=== PATIENT | male | born 1960 | race Caucasian/White ===

== ENCOUNTER 2023-08-04 13:31 | Outpatient (REF) | payer MEDICARE, SELFPAY ==
[2023-08-04 18:13] LABS: Anion Gap 13 (12-20); Blood Urea Nitrogen 17 mg/dL (9-16); Calcium 9.7 mg/dL (8.4-10.2); Carbon Dioxide 29 mmol/L (22-29); Chloride 101 mmol/L (96-108); Estimated Glomerular Filt Rate 53; Potassium 4.7 mmol/L (3.3-5.1); Sodium 138 mmol/L (135-145)
[2023-08-04 19:25] LABS: Creatinine Urine 37.53 mg/dL; Protein/Creatinine Ratio, Ur 0.37 (<0.2); Total Protein Urine Random 14 mg/dL (<12)
== END 2023-08-04 13:32 | disposition home or self-care (01) ==
LOC: HO.HKASLDS 13:31
PROVIDERS: Visit Provider Internal Medicine Nephrology
DX: N18.30 Chronic kidney disease, stage 3 unspecified (principal)
CPT/HCPCS: 36415; 80051; 82310; 82565; 82570; 84156; 84520

== ENCOUNTER 2023-08-17 14:30 | Outpatient (AMB) | payer MEDICARE, SELFPAY ==
--- NOTE | 2023-08-17 14:48 | HO.NEPHOV ---
HPI HPI Comments History of Present Illness Details I had the privilege of seeing sigifredo in follow-up of his chronic kidney disease and hypertension. His serum creatinine has been stable around 1.3 with a 370 mg of protein in the urine by random testing. He has had no renal stones since last visit. His weights have been stable. His blood pressure is well controlled. He is not taking any nonsteroidal anti-inflammatories. He denies nausea, vomiting, diarrhea, pedal edema, orthostatic symptoms, hematuria, dizziness. He maintains good hydration. He is due to have a colonoscopy given family history of colonic polyps. [facility] Medical History (Updated 08/17/23 @ 15:16 by Jono Clark MD) Renal stone Hypertension CKD (chronic kidney disease) stage 3, GFR 30-59 ml/min Surgical History History of ankle fusion Family History Father Hypertension Social History (Updated 08/17/23 @ 14:59 by Alisa Walker MA) Alcohol intake: current Comment: Occasional Patient Tobacco Use Status: Never used Tobacco Vital Signs 08/17/23 14:49 Height 5 ft 8 in Weight 274 lb 4 oz BMI 41.7 BP 124/70 Blood Pressure Location Rt brachial Position Sitting Pulse 72 Pulse Source Pulse Oximeter Pulse Oximetry (%) 93 Oxygen Delivery Method Room Air Physical Exam Vital Signs: Last Vital Signs Pulse 72 08/17/23 14:49 BP 124/70 08/17/23 14:49 Pulse Ox 93 08/17/23 14:49 Oxygen Delivery Method Room Air 08/17/23 14:49 BMI result Body Mass Index 41.7 Const General: comfortable and no acute distress Orientation/consciousness: patient oriented x3 HEENT Head: Yes normocephalic Mouth: Normal oral and palatal mucosa present Eyes EOM: EOMs intact bilaterally Neck Neck: Yes supple Resp Auscultation: clear to auscultation bilaterally Cardio Jugular venous distension: no JVD Rate: regular rate GI Palpation (GI): Soft to palpation Auscultation: normal bowel sounds General: Yes no CVA tenderness Back/Spine/Pelvis Back: no CVA tenderness Skin General skin exam: no rashes or lesions noted Neuro General: patient oriented x3 and moves all extremities Extrem General: Yes no pedal edema Assessment & Plan Assessment & Plan (1) CKD (chronic kidney disease) stage 3, GFR 30-59 ml/min: Code(s): N18.30 - Chronic kidney disease, stage 3 unspecified Qualifiers: Chronic kidney disease stage 3 subtype: stage 3a (GFR 45-59) Qualified Code(s): N18.31 - Chronic kidney disease, stage 3a (2) Renal stone: Code(s): N20.0 - Calculus of kidney (3) Hypertension: Code(s): I10 - Essential (primary) hypertension Qualifiers: Hypertension type: primary hypertension Qualified Code(s): I10 - Essential (primary) hypertension Plan His renal functions are currently stable. His proteinuria is stable. His blood pressure is at goal. He is staying away from nonsteroidal anti-inflammatories. He will benefit from some weight loss and regular exercises. I will consider initiating him on low-dose DEBBIE inhibitor (and or thiazide diuretics especially given history of renal stones). I did not make any medication changes today. Follow-up blood work ordered. Appointment given. Answered all questions. Orders: Orders Creatinine Today I10 - Essential (primary) hypertension, N18.30 - Chronic kidney disease, stage 3 unspecified, N20.0 - Calculus of kidney Blood Urea Nitrogen Today I10 - Essential (primary) hypertension, N18.30 - Chronic kidney disease, stage 3 unspecified, N20.0 - Calculus of kidney Electrolytes Today I10 - Essential (primary) hypertension, N18.30 - Chronic kidney disease, stage 3 unspecified, N20.0 - Calculus of kidney Protein Creatinine Ratio, Ur Today I10 - Essential (primary) hypertension, N18.30 - Chronic kidney disease, stage 3 unspecified, N20.0 - Calculus of kidney Coding Level of Care Code Est Pt Level 3 (97708) Diagnoses Stage 3a chronic kidney disease N18.31 Chronic kidney disease stage 3 subtype: stage 3a (GFR 45-59) Renal stone N20.0 Primary hypertension I10 Hypertension type: primary hypertension Results Reviewed Nephrology Results: Sodium 138 mmol/L (135-145) 08/04/23 Potassium 4.7 mmol/L (3.3-5.1) 08/04/23 Chloride 101 mmol/L (96-108) 08/04/23 Carbon Dioxide 29 mmol/L (22-29) 08/04/23 BUN 17 mg/dL (9-16) H 08/04/23 Creatinine 1.35 mg/dL (0.5-1.4) 08/04/23 Calcium 9.7 mg/dL (8.4-10.2) 08/04/23 Urine Creatinine 37.53 mg/dL 08/04/23 Protein/Creatinin Ratio 0.37 (<0.2) H 08/04/23
[2023-08-17 14:49] VITALS: BP 124/70; PULSE 72; O2SAT 93; BMI 41.7
== END 2023-08-17 15:25 | disposition home or self-care (01) ==
PROVIDERS: PCP Physician Assistant Medical; Visit Provider Internal Medicine Nephrology
DX: N18.31 Chronic kidney disease, stage 3a (principal); N20.0 Calculus of kidney; I10 Essential (primary) hypertension
CPT/HCPCS: 99213

== ENCOUNTER → 2023-08-17 14:30 | Outpatient (BNVA) | payer MEDICARE, SELFPAY | PROVIDERS: PCP Physician Assistant Medical; Visit Provider Internal Medicine Nephrology | DX: I12.9 Hypertensive chronic kidney disease with stage 1 through stage 4 chronic kidney disease, or unspecified chronic kidney disease (principal); N18.31 Chronic kidney disease, stage 3a; N20.0 Calculus of kidney | CPT/HCPCS: 99212 ==

== ENCOUNTER 2024-02-22 10:47 | Outpatient (REF) | payer MEDICARE, SELFPAY ==
[2024-02-22 18:15] LABS: Anion Gap 13 (12-20); Blood Urea Nitrogen 18 mg/dL (9-16); Carbon Dioxide 29 mmol/L (22-29); Chloride 104 mmol/L (96-108); Estimated Glomerular Filt Rate 58; Sodium 141 mmol/L (135-145)
[2024-02-22 18:30] LABS: Creatinine Urine 84.92 mg/dL; Protein/Creatinine Ratio, Ur 0.33 (<0.2); Total Protein Urine Random 28 mg/dL (<12)
== END 2024-02-22 10:48 | disposition home or self-care (01) ==
LOC: HO.HKASLDS 10:47
PROVIDERS: Visit Provider Internal Medicine Nephrology
DX: I10 Essential (primary) hypertension (principal); N20.0 Calculus of kidney; N18.30 Chronic kidney disease, stage 3 unspecified
CPT/HCPCS: 36415; 80051; 82565; 82570; 84156; 84520

== ENCOUNTER 2024-02-29 11:18 | Outpatient (AMB) | payer MEDICARE, SELFPAY ==
--- NOTE | 2024-02-29 11:31 | HO.NEPHOV_ITS ---
Vital Signs 02/29/24 11:32 Height 5 ft 8 in Weight 276 lb 2 oz BMI 42.0 BP 122/74 Blood Pressure Location Lt brachial Position Sitting Pulse 82 Pulse Source Pulse Oximeter Pulse Oximetry (%) 93 Oxygen Delivery Method Room Air Intake Visit Reasons: CKD/ 3 MO FU- [facility] Aml Analyst Required: No Accompanied by: Self / Same As Patient Allergies No Known Allergies Allergy (Verified 02/29/24 11:34) HPI Comments Details: I had the privilege of seeing sigifredo in follow-up of his chronic kidney disease and hypertension. His serum creatinine has been stable around 1.3. He has had no renal stones since last visit. His weights have been stable. His blood pressure is well controlled. He is not taking any nonsteroidal anti- inflammatories. He denies nausea, vomiting, diarrhea, pedal edema, orthostatic symptoms, hematuria, dizziness. He maintains good hydration. He is due to have a colonoscopy given family history of colonic polyps. [facility] Medical History (Updated 08/17/23 @ 15:16 by Jono Clark MD) Renal stone Hypertension CKD (chronic kidney disease) stage 3, GFR 30-59 ml/min Surgical History History of ankle fusion Family History Father Hypertension Social History Alcohol intake: current Comment: Occasional Patient Tobacco Use Status: Never used Tobacco Physical Exam Vital Signs: Last Vital Signs Pulse 82 02/29/24 11:32 BP 122/74 02/29/24 11:32 Pulse Ox 93 02/29/24 11:32 Oxygen Delivery Method Room Air 02/29/24 11:32 BMI result Body Mass Index 42.0 Const General: comfortable and no acute distress Orientation/consciousness: patient oriented x3 HEENT Head: Yes normocephalic Mouth: Normal oral and palatal mucosa present Eyes EOM: EOMs intact bilaterally Neck Neck: Yes supple Resp Auscultation: clear to auscultation bilaterally Cardio Jugular venous distension: no JVD Rate: regular rate GI Palpation (GI): Soft to palpation Auscultation: normal bowel sounds General: Yes no CVA tenderness Back/Spine/Pelvis Back: no CVA tenderness Skin General skin exam: no rashes or lesions noted Neuro General: patient oriented x3 and moves all extremities Extrem General: Yes no pedal edema Results Reviewed Nephrology Results: Sodium 141 mmol/L (135-145) 02/22/24 Potassium 5.0 mmol/L (3.3-5.1) 02/22/24 Chloride 104 mmol/L (96-108) 02/22/24 Carbon Dioxide 29 mmol/L (22-29) 02/22/24 BUN 18 mg/dL (9-16) H 02/22/24 Creatinine 1.26 mg/dL (0.5-1.4) 02/22/24 Calcium 9.7 mg/dL (8.4-10.2) 08/04/23 Urine Creatinine 84.92 mg/dL 02/22/24 Protein/Creatinin Ratio 0.33 (<0.2) H 02/22/24 Assessment & Plan Assessment & Plan (1) CKD (chronic kidney disease) stage 3, GFR 30-59 ml/min: Code(s): N18.30 - Chronic kidney disease, stage 3 unspecified Category: Medical Qualifiers: Chronic kidney disease stage 3 subtype: stage 3a (GFR 45-59) Qualified Code(s): N18.31 - Chronic kidney disease, stage 3a (2) Renal stone: Code(s): N20.0 - Calculus of kidney Category: Medical (3) Hypertension: Code(s): I10 - Essential (primary) hypertension Category: Medical Qualifiers: Hypertension type: primary hypertension Qualified Code(s): I10 - Essential (primary) hypertension Plan His renal functions are currently stable. His proteinuria is stable. His blood pressure is at goal. He is staying away from nonsteroidal anti-inflammatories. He will benefit from some weight loss and regular exercises. I will consider initiating him on low-dose DEBBIE inhibitor (and or thiazide diuretics especially given history of renal stones). I did not make any medication changes today. Follow-up blood work ordered. Appointment given. Answered all questions. Orders: Orders Electrolytes Today I10 - Essential (primary) hypertension, N18.31 - Chronic kidney disease, stage 3a, N20.0 - Calculus of kidney Creatinine Today I10 - Essential (primary) hypertension, N18.31 - Chronic kidney disease, stage 3a, N20.0 - Calculus of kidney Blood Urea Nitrogen Today I10 - Essential (primary) hypertension, N18.31 - Chronic kidney disease, stage 3a, N20.0 - Calculus of kidney Medications: New metoprolol succinate ER 100 mg PO DAILY 90 tabs 4RF Changed From verapamil ER PO To verapamil ER 180 mg PO BID 90 days 180 tabs 4RF Coding Level of Care Code Est Pt Level 4 (86057) Diagnoses Stage 3a chronic kidney disease N18.31 Chronic kidney disease stage 3 subtype: stage 3a (GFR 45-59) Renal stone N20.0 Primary hypertension I10 Hypertension type: primary hypertension
[2024-02-29 11:32] VITALS: BP 122/74; PULSE 82; O2SAT 93; BMI 42.0
== END 2024-02-29 11:46 | disposition home or self-care (01) ==
PROVIDERS: PCP Physician Assistant Medical; Visit Provider Internal Medicine Nephrology
DX: N18.31 Chronic kidney disease, stage 3a (principal); N20.0 Calculus of kidney; I10 Essential (primary) hypertension
CPT/HCPCS: 99214

== ENCOUNTER → 2024-02-29 11:18 | Outpatient (BNVA) | payer MEDICARE, SELFPAY | PROVIDERS: PCP Physician Assistant Medical; Visit Provider Internal Medicine Nephrology | DX: I12.9 Hypertensive chronic kidney disease with stage 1 through stage 4 chronic kidney disease, or unspecified chronic kidney disease (principal); N18.31 Chronic kidney disease, stage 3a; N20.0 Calculus of kidney | CPT/HCPCS: 99212 ==

== ENCOUNTER 2024-08-22 13:18 | Outpatient (REF) | payer MEDICARE, SELFPAY ==
--- OUTSIDE RECORDS SUMMARY | 2024-08-22 16:19 | XMS_ITS | Clinical Summary ---
Author Organization [facility] Address [address] [facility] [address] [place] [address] Phone Care Team Providers Care Carpet Renovator Name Role Phone King Wood PA-C Primary Care Provider Allergies No known active allergies Medications aspirin (ST BIBI) 81 MG EC tablet Take 1 tablet by mouth 1 (one) time each day Active Glucosamine-Cho ndroitin 750-600 MG tablet Take 1 tablet by mouth 1 (one) time each day Active Multiple Vitamin (MULTIVITAMIN ADULT PO) Take 1 capsule by mouth 1 (one) time each day Active timolol (BETIMOL) 0.5 % ophthalmic solution Administer 1 drop into both eyes 2 (two) times a day Active Cranberry 1000 MG capsule Take 1 capsule by mouth 1 (one) time each day Active cephalexin (KEFLEX) 500 MG capsule TAKE 1 CAPSULE BY MOUTH FOUR TIMES DAILY FOR 7 DAYS 2 Active latanoprost (XALATAN) 0.005 % ophthalmic solution INSTILL 1 DROP INTO BOTH EYES EVERY NIGHT AT BEDTIME 3 Active fluticasone (FLONASE) 50 MCG/ACT nasal spray USE 1 SPRAY IN EACH NOSTRIL DAILY 3 Active verapamil SR (CALAN-SR) 180 MG CR tabletIndicatio ns:Renal stone Take 1 tablet (180 mg total) by mouth in the morning and 1 tablet (180 mg total) in the evening. Do not crush or chew.. 180 tablet 3 3 Active metoprolol succinate XL (TOPROL-XL) 100 MG 24 hr tablet Take 1 tablet (100 mg total) by mouth 1 (one) time each day Do not crush or chew. 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 Stage 3a chronic kidney disease 09/26/2020 Flank pain 09/26/2020 Renal stone 09/26/2020 Family History Medical History Relation Comments Diabetes Father Heart disease Father Hypertension Father Relation Status Comments Father Mother Social History Tobacco Use Types Packs/Day Years Used Date Smoking Tobacco: Never Smokeless Tobacco: Never Tobacco Cessation:Counseling Given: Not Answered Alcohol Use Standard Drinks/Week Comments Yes 0 (1 standard drink = 0.6 oz pure alcohol) Alcoholic Drinks/day: Occasional social drink Sex and Gender Information Value Date Recorded Sex Assigned at Not on file Legal Sex Male 5:02 PM EST Gender Identity Not on file Sexual Orientation Not on file Last Filed Vital Signs Vital Sign Reading Time Taken Comments Blood Pressure 122/78 02/15/2023 3:07 PM EDT Pulse 79 02/15/2023 3:07 PM EDT Temperature - - Respiratory Rate - - Oxygen Saturation 96% 03/26/2022 2:06 PM EDT Inhaled Oxygen Concentration - - Weight 127 kg (281 lb) 02/15/2023 3:07 PM EDT Height 172.7 cm (5' 8 ) 09/18/2019 12:00 PM EDT Body Mass Index 42.73 09/18/2019 12:00 PM EDT Plan of Treatment Health Maintenance Due Date Last Done Comments Pneumococcal Vaccine: Pediat rics (0 to 5 Years) and At-Risk Patients (6 to 64 Years) (1 of 2 - PCV) 1966 Colorectal Cancer Screening: Annual FOBT 2009 Colorectal Cancer Screening: Colonoscopy 2009 Colorectal Cancer Screening: Sigmoidoscopy 2009 Influenza Vaccine (#1) 2024 Hepatitis B Vaccine Aged Out No longe r eligible based on patient's age to complete this topic Insurance [employer] MEDICARE MEDICARE Care Teams Carpet Renovator Relationship Specialty Start Date End Date King Wood PA-C PCP - General Physician Refrigerator Assembler 03/24/21
[2024-08-22 18:24] LABS: Anion Gap 13 (12-20); Blood Urea Nitrogen 19 mg/dL (9-16); Carbon Dioxide 25 mmol/L (22-29); Chloride 103 mmol/L (96-108); Estimated Glomerular Filt Rate > 60; Potassium 4.2 mmol/L (3.3-5.1); Sodium 137 mmol/L (135-145)
== END 2024-08-22 13:19 | disposition home or self-care (01) ==
LOC: HO.HKASLDS 13:18
PROVIDERS: Visit Provider Internal Medicine Nephrology
DX: I12.9 Hypertensive chronic kidney disease with stage 1 through stage 4 chronic kidney disease, or unspecified chronic kidney disease (principal); N20.0 Calculus of kidney; N18.31 Chronic kidney disease, stage 3a
CPT/HCPCS: 36415; 80051; 82565; 84520

== ENCOUNTER 2024-08-29 10:03 | Outpatient (AMB) | payer MEDICARE, SELFPAY ==
--- NOTE | 2024-08-29 10:12 | HO.NEPHOV ---
Vital Signs 08/29/24 10:14 Height 5 ft 8 in Weight 278 lb 8 oz BMI 42.3 BP 128/70 Blood Pressure Location Lt brachial Position Sitting Pulse 71 Pulse Source Pulse Oximeter Pulse Oximetry (%) 93 Oxygen Delivery Method Room Air Intake Visit Reasons: 6 mon follow up-Busy [facility] Gill Box Fixer Required: No Accompanied by: Self / Same As Patient Allergies No Known Allergies Allergy (Verified 08/29/24 10:14) HPI Comments Details: Enzo in follow-up of his chronic kidney disease and hypertension. His serum creatinine has been stable around 1.3. He has had no renal stones since last visit. His weights have been stable. His blood pressure is well controlled. He is not taking any nonsteroidal anti-inflammatories. He denies nausea, vomiting, diarrhea, pedal edema, orthostatic symptoms, hematuria, dizziness. He maintains good hydration. [facility] Medical History (Updated 08/17/23 @ 15:16 by Jono Clark MD) Renal stone Hypertension CKD (chronic kidney disease) stage 3, GFR 30-59 ml/min Surgical History History of ankle fusion Family History Father Hypertension Social History Alcohol intake: current Comment: Occasional Patient Tobacco Use Status: Never used Tobacco Review of Systems Const All systems reviewed & are unremarkable except as noted in HPI and below Physical Exam Vital Signs: Last Vital Signs Pulse 71 08/29/24 10:14 BP 128/70 08/29/24 10:14 Pulse Ox 93 08/29/24 10:14 Oxygen Delivery Method Room Air 08/29/24 10:14 BMI result Body Mass Index 42.3 Const General: comfortable and no acute distress Orientation/consciousness: patient oriented x3 HEENT Head: Yes normocephalic Mouth: Normal oral and palatal mucosa present Eyes EOM: EOMs intact bilaterally Neck Neck: Yes supple Resp Auscultation: clear to auscultation bilaterally Cardio Jugular venous distension: no JVD Rate: regular rate GI Palpation (GI): Soft to palpation Auscultation: normal bowel sounds General: Yes no CVA tenderness Back/Spine/Pelvis Back: no CVA tenderness Skin General skin exam: no rashes or lesions noted Neuro General: patient oriented x3 and moves all extremities Extrem General: Yes no pedal edema Results Reviewed Nephrology Results: Sodium 137 mmol/L (135-145) 08/22/24 Potassium 4.2 mmol/L (3.3-5.1) 08/22/24 Chloride 103 mmol/L (96-108) 08/22/24 Carbon Dioxide 25 mmol/L (22-29) 08/22/24 BUN 19 mg/dL (9-16) H 08/22/24 Creatinine 1.04 mg/dL (0.5-1.4) 08/22/24 Calcium 9.7 mg/dL (8.4-10.2) 08/04/23 Urine Creatinine 84.92 mg/dL 02/22/24 Protein/Creatinin Ratio 0.33 (<0.2) H 02/22/24 Assessment & Plan Assessment & Plan (1) CKD (chronic kidney disease) stage 3, GFR 30-59 ml/min: Code(s): N18.30 - Chronic kidney disease, stage 3 unspecified Category: Medical Qualifiers: Chronic kidney disease stage 3 subtype: stage 3a (GFR 45-59) Qualified Code(s): N18.31 - Chronic kidney disease, stage 3a (2) Renal stone: Code(s): N20.0 - Calculus of kidney Category: Medical (3) Hypertension: Code(s): I10 - Essential (primary) hypertension Category: Medical Qualifiers: Hypertension type: primary hypertension Qualified Code(s): I10 - Essential (primary) hypertension Plan His renal functions are currently stable. His proteinuria had been stable. His blood pressure is at goal. He is staying away from nonsteroidal anti-inflammatories. He will benefit from some weight loss and regular exercises. I will consider initiating him on low-dose DEBBIE inhibitor (and or thiazide diuretics especially given history of renal stones). I did not make any medication changes today. Answered all questions. Orders: Orders Protein Creatinine Ratio, Ur 6 Months I10 - Essential (primary) hypertension, N18.31 - Chronic kidney disease, stage 3a, N20.0 - Calculus of kidney Creatinine 6 Months I10 - Essential (primary) hypertension, N18.31 - Chronic kidney disease, stage 3a, N20.0 - Calculus of kidney Blood Urea Nitrogen 6 Months I10 - Essential (primary) hypertension, N18.31 - Chronic kidney disease, stage 3a, N20.0 - Calculus of kidney Electrolytes 6 Months I10 - Essential (primary) hypertension, N18.31 - Chronic kidney disease, stage 3a, N20.0 - Calculus of kidney Coding Level of Care Code Est Pt Level 4 (70097) Diagnoses Stage 3a chronic kidney disease N18.31 Chronic kidney disease stage 3 subtype: stage 3a (GFR 45-59) Renal stone N20.0 Primary hypertension I10 Hypertension type: primary hypertension
[2024-08-29 10:14] VITALS: BP 128/70; PULSE 71; O2SAT 93; BMI 42.3
--- OUTSIDE RECORDS SUMMARY | 2024-08-29 11:59 | XMS_ITS | Clinical Summary ---
Author Organization [facility] Address [address] [facility] [address] [place] [address] Phone Care Team Providers Care Design Printer Balloon Name Role Phone King Wood PA-C Primary [...] topic Insurance [employer] MEDICARE MEDICARE Care Teams Design Printer Balloon Relationship Specialty Start Date End Date King Wood PA-C PCP - General Physician Ops Manager 03/24/21
== END 2024-08-29 10:49 | disposition home or self-care (01) ==
PROVIDERS: PCP Physician Assistant Medical; Visit Provider Internal Medicine Nephrology
DX: N18.31 Chronic kidney disease, stage 3a (principal); N20.0 Calculus of kidney; I10 Essential (primary) hypertension
CPT/HCPCS: 99214

== ENCOUNTER → 2024-08-29 10:03 | Outpatient (BNVA) | payer MEDICARE, SELFPAY | PROVIDERS: PCP Physician Assistant Medical; Visit Provider Internal Medicine Nephrology | DX: I12.9 Hypertensive chronic kidney disease with stage 1 through stage 4 chronic kidney disease, or unspecified chronic kidney disease (principal); N18.31 Chronic kidney disease, stage 3a; N20.0 Calculus of kidney | CPT/HCPCS: 99212 ==

== ENCOUNTER 2025-02-28 12:05 | Outpatient (REF) | payer MEDICARE, SELFPAY ==
--- OUTSIDE RECORDS SUMMARY | 2025-02-28 14:43 | XMS_ITS | Clinical Summary ---
Author Organization [facility] Address [address] [facility] [address] [place] [address] Phone Care Team Providers Care Financial Accountant Name Role Phone King Wood PA-C Primary [...] Due Date Last Done Comments Pneumococcal Vaccine: 50+ Ye ars (1 of 2 - PCV) 1979 Colorectal Cancer Screening: Annual FOBT 2009 Colorectal Cancer Screening: Colonoscopy 2009 Colorectal Cancer Screening: Sigmoidoscopy 2009 Influenza Vaccine (#1) 2025 Hepatitis B Vaccine Aged Out No longe r eligible based on patient's age to complete this topic Insurance [facility] Medicare Medicare Care Teams Financial Accountant Relationship Specialty Start Date End Date King Wood PA-C PCP - General Physician Cloth Shrinker 03/24/21
[2025-02-28 18:08] LABS: Anion Gap 13 (12-20); Blood Urea Nitrogen 22 mg/dL (9-16); Carbon Dioxide 24 mmol/L (22-29); Chloride 105 mmol/L (96-108); Estimated Glomerular Filt Rate 55; Potassium 4.3 mmol/L (3.3-5.1); Sodium 138 mmol/L (135-145)
[2025-02-28 18:24] LABS: Protein/Creatinine Ratio, Ur 0.24 (<0.2); Total Protein Urine Random 16 mg/dL (<12)
== END 2025-02-28 12:06 | disposition home or self-care (01) ==
LOC: HO.HKASLDS 12:05
PROVIDERS: Visit Provider Internal Medicine Nephrology
DX: I12.9 Hypertensive chronic kidney disease with stage 1 through stage 4 chronic kidney disease, or unspecified chronic kidney disease (principal); N18.31 Chronic kidney disease, stage 3a; N20.0 Calculus of kidney
CPT/HCPCS: 36415; 80051; 82565; 82570; 84156; 84520

== ENCOUNTER 2025-03-06 09:34 | Outpatient (AMB) | payer MEDICARE, SELFPAY ==
--- NOTE | 2025-03-06 09:51 | HO.NEPHOV_ITS ---
Vital Signs 03/06/25 09:53 Height 5 ft 8 in Weight 261 lb 2 oz BMI 39.7 BP 130/60 Blood Pressure Location Lt brachial Position Sitting Pulse 76 Pulse Source Pulse Oximeter Pulse Oximetry (%) 93 Oxygen Delivery Method Room Air Intake Visit Reasons: 6mon follow-up w/labs-LVM Redrawer Required: No Accompanied by: Self / Same As Patient Allergies No Known Allergies Allergy (Verified 03/06/25 09:53) HPI Comments Details: Enzo in follow-up of his chronic kidney disease and hypertension. His serum creatinine has been stable around 1.3. He has had no renal stones since last visit. His weights have been stable. His blood pressure is well controlled. He is not taking any nonsteroidal anti-inflammatories. He denies nausea, vomiting, diarrhea, pedal edema, orthostatic symptoms, hematuria, dizziness. He maintains good hydration. He is having prostatic symptoms. Has not had a PSA [facility] Medical History (Updated 03/06/25 @ 10:00 by Jono Clark MD) Renal stone Hypertension CKD (chronic kidney disease) stage 3, GFR 30-59 ml/min Surgical History History of ankle fusion Family History Father Hypertension Social History Alcohol intake: current Comment: Occasional Patient Tobacco Use Status: Never used Tobacco Review of Systems Const All systems reviewed & are unremarkable except as noted in HPI and below Physical Exam Vital Signs: Last Vital Signs Pulse 76 03/06/25 09:53 BP 130/60 03/06/25 09:53 Pulse Ox 93 03/06/25 09:53 Oxygen Delivery Method Room Air 03/06/25 09:53 BMI result Body Mass Index 39.7 Const General: comfortable and no acute distress Orientation/consciousness: patient oriented x3 HEENT Head: Yes normocephalic Mouth: Normal oral and palatal mucosa present Eyes EOM: EOMs intact bilaterally Neck Neck: Yes supple Resp Auscultation: clear to auscultation bilaterally Cardio Jugular venous distension: no JVD Rate: regular rate GI Palpation (GI): Soft to palpation Auscultation: normal bowel sounds General: Yes no CVA tenderness Back/Spine/Pelvis Back: no CVA tenderness Skin General skin exam: no rashes or lesions noted Neuro General: patient oriented x3 and moves all extremities Extrem General: Yes no pedal edema Results Reviewed Nephrology Results: Sodium, (135-145) 138 mmol/L 02/28/25 Potassium, (3.3-5.1) 4.3 mmol/L 02/28/25 Chloride, (96-108) 105 mmol/L 02/28/25 Carbon Dioxide, (22-29) 24 mmol/L 02/28/25 BUN, (9-16) 22 mg/dL H 02/28/25 Creatinine, (0.5-1.4) 1.32 mg/dL 02/28/25 Calcium, (8.4-10.2) 9.7 mg/dL 08/04/23 Urine Creatinine 65.36 mg/dL 02/28/25 Protein/Creatinin Ratio, (<0.2) 0.24 H 02/28/25 Assessment & Plan Assessment & Plan (1) BPH loc w urin obs/LUTS: Code(s): N40.1 - Benign prostatic hyperplasia with lower urinary tract symptoms Category: Medical (2) Hypertension: Code(s): I10 - Essential (primary) hypertension Category: Medical Qualifiers: Hypertension type: primary hypertension Qualified Code(s): I10 - Essential (primary) hypertension (3) CKD (chronic kidney disease) stage 3, GFR 30-59 ml/min: Code(s): N18.30 - Chronic kidney disease, stage 3 unspecified Category: Medical Qualifiers: Chronic kidney disease stage 3 subtype: stage 3a (GFR 45-59) Qualified Code(s): N18.31 - Chronic kidney disease, stage 3a (4) Renal stone: Code(s): N20.0 - Calculus of kidney Category: Medical Plan His renal functions are currently stable. His proteinuria had been stable. His blood pressure is at goal. He is staying away from nonsteroidal anti- inflammatories. He will benefit from some weight loss and regular exercises. I will consider initiating him on low-dose DEBBIE inhibitor (and or thiazide diuretics especially given history of renal stones). I started him on Tamsulosin 0.4 mg daily and ordered PSA. I did not make any other medication changes today. Answered all questions. Orders: Orders Creatinine 3 Months I10 - Essential (primary) hypertension, N18.31 - Chronic kidney disease, stage 3a, N20.0 - Calculus of kidney, N40.1 - Benign prostatic hyperplasia with lower urinary tract symptoms Blood Urea Nitrogen 3 Months I10 - Essential (primary) hypertension, N18.31 - Chronic kidney disease, stage 3a, N20.0 - Calculus of kidney, N40.1 - Benign prostatic hyperplasia with lower urinary tract symptoms Protein Creatinine Ratio, Ur 3 Months I10 - Essential (primary) hypertension, N18.31 - Chronic kidney disease, stage 3a, N20.0 - Calculus of kidney, N40.1 - Benign prostatic hyperplasia with lower urinary tract symptoms PSA,Total (Free>4and<10) Today N40.1 - Benign prostatic hyperplasia with lower urinary tract symptoms Electrolytes 3 Months I10 - Essential (primary) hypertension, N18.31 - Chronic kidney disease, stage 3a, N20.0 - Calculus of kidney, N40.1 - Benign prostatic hyperplasia with lower urinary tract symptoms Medications: New tamsulosin 0.4 mg PO BEDTIME 90 caps 3RF Coding Level of Care Code Est Pt Level 4 (01699) Diagnoses BPH loc w urin obs/LUTS N40.1 Primary hypertension I10 Hypertension type: primary hypertension Stage 3a chronic kidney disease N18.31 Chronic kidney disease stage 3 subtype: stage 3a (GFR 45-59) Renal stone N20.0
[2025-03-06 09:53] VITALS: BP 130/60; PULSE 76; O2SAT 93; BMI 39.7
--- OUTSIDE RECORDS SUMMARY | 2025-03-06 11:04 | XMS_ITS | Clinical Summary ---
Author Organization [facility] Address [address] [facility] [address] [place] [address] Phone Care Team Providers Care Ethylbenzene Cracking Supervisor Name Role Phone King Wood PA-C Primary [...] patient's age to complete this topic Insurance [facility] [place] [address] Care Teams Ethylbenzene Cracking Supervisor Relationship Specialty Start Date End Date King Wood PA-C PCP - General Physician Chef De Cuisine 03/24/21
== END 2025-03-06 10:05 | disposition home or self-care (01) ==
LOC: HO.HKAS 09:35
PROVIDERS: PCP Physician Assistant Medical; Visit Provider Internal Medicine Nephrology
DX: N40.1 Benign prostatic hyperplasia with lower urinary tract symptoms (principal); I10 Essential (primary) hypertension; N18.31 Chronic kidney disease, stage 3a; N20.0 Calculus of kidney
CPT/HCPCS: 99214

== ENCOUNTER 2025-03-06 09:34 | Outpatient (REF) | payer MEDICARE, SELFPAY ==
[2025-03-06 13:57] LABS: PSA,Total (Free>4and<10) 0.38 ng/mL (0.00-4.00)
== END 2025-03-06 09:35 | disposition home or self-care (01) ==
LOC: HO.HKASLDS 09:34
PROVIDERS: PCP Physician Assistant Medical; Visit Provider Internal Medicine Nephrology
DX: I12.9 Hypertensive chronic kidney disease with stage 1 through stage 4 chronic kidney disease, or unspecified chronic kidney disease (principal); N18.31 Chronic kidney disease, stage 3a; N40.1 Benign prostatic hyperplasia with lower urinary tract symptoms; N20.0 Calculus of kidney; Z12.5 Encounter for screening for malignant neoplasm of prostate
CPT/HCPCS: 36415; 84153; 99212

== ENCOUNTER 2025-05-31 13:52 | Outpatient (REF) | payer MEDICARE, SELFPAY ==
[2025-05-31 18:16] LABS: Anion Gap 14 (12-20); Blood Urea Nitrogen 20 mg/dL (9-16); Carbon Dioxide 23 mmol/L (22-29); Chloride 107 mmol/L (96-108); Estimated Glomerular Filt Rate 59; Potassium 4.3 mmol/L (3.3-5.1); Sodium 140 mmol/L (135-145)
[2025-05-31 18:37] LABS: Protein/Creatinine Ratio, Ur 0.38 (<0.2); Total Protein Urine Random 32 mg/dL (<12)
== END 2025-05-31 13:53 | disposition home or self-care (01) ==
LOC: HO.HKASLDS 13:52
PROVIDERS: PCP Physician Assistant Medical; Visit Provider Internal Medicine Nephrology
DX: I12.9 Hypertensive chronic kidney disease with stage 1 through stage 4 chronic kidney disease, or unspecified chronic kidney disease (principal); N18.31 Chronic kidney disease, stage 3a; N40.1 Benign prostatic hyperplasia with lower urinary tract symptoms; N20.0 Calculus of kidney
CPT/HCPCS: 36415; 80051; 82565; 82570; 84156; 84520

== ENCOUNTER 2025-06-05 09:39 | Outpatient (AMB) | payer MEDICARE, SELFPAY ==
[2025-06-05 09:50] VITALS: BP 130/60; PULSE 77; O2SAT 95; BMI 40.5
--- NOTE | 2025-06-05 09:50 | HO.NEPHOV_ITS ---
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 His serum creatinine has been stable around 1.3. He has had no renal stones since last visit. His weights have been stable. His blood pressure is well controlled. He is not taking any nonsteroidal anti-inflammatories. He denies nausea, vomiting, diarrhea, pedal edema, orthostatic symptoms, hematuria, dizziness. He maintains good hydration. [facility] Medical History (Updated 03/06/25 @ 10:00 by Jono Clark MD) Renal stone Hypertension CKD (chronic kidney disease) stage 3, GFR 30-59 ml/min Surgical History History of ankle fusion Family History Father Hypertension Social History Alcohol intake: current Comment: Occasional Patient Tobacco Use Status: Never used Tobacco Review of Systems Const All systems reviewed & are unremarkable except as noted in HPI and below Physical Exam Vital Signs: Last Vital Signs Pulse 77 06/05/25 09:50 BP 130/60 06/05/25 09:50 Pulse Ox 95 06/05/25 09:50 Oxygen Delivery Method Room Air 06/05/25 09:50 BMI result Body Mass Index 40.5 Const General: comfortable and no acute distress Orientation/consciousness: patient oriented x3 HEENT Head: Yes normocephalic Mouth: Normal oral and palatal mucosa present Eyes EOM: EOMs intact bilaterally Neck Neck: Yes supple Resp Auscultation: clear to auscultation bilaterally Cardio Jugular venous distension: no JVD Rate: regular rate GI Palpation (GI): Soft to palpation Auscultation: normal bowel sounds General: Yes no CVA tenderness Back/Spine/Pelvis Back: no CVA tenderness Skin General skin exam: no rashes or lesions noted Neuro General: patient oriented x3 and moves all extremities Extrem General: Yes no pedal edema Results Reviewed Nephrology Results: Sodium, (135-145) 140 mmol/L 05/31/25 Potassium, (3.3-5.1) 4.3 mmol/L 05/31/25 Chloride, (96-108) 107 mmol/L 05/31/25 Carbon Dioxide, (22-29) 23 mmol/L 05/31/25 BUN, (9-16) 20 mg/dL H 05/31/25 Creatinine, (0.5-1.4) 1.23 mg/dL 05/31/25 Calcium, (8.4-10.2) 9.7 mg/dL 08/04/23 Urine Creatinine 83.77 mg/dL 05/31/25 Protein/Creatinin Ratio, (<0.2) 0.38 H 05/31/25 Assessment & Plan Assessment & Plan (1) CKD (chronic kidney disease) stage 3, GFR 30-59 ml/min: Code(s): N18.30 - Chronic kidney disease, stage 3 unspecified Category: Medical Qualifiers: Chronic kidney disease stage 3 subtype: stage 3a (GFR 45-59) Qualified Code(s): N18.31 - Chronic kidney disease, stage 3a (2) Renal stone: Code(s): N20.0 - Calculus of kidney Category: Medical (3) Hypertension: Code(s): I10 - Essential (primary) hypertension Category: Medical Qualifiers: Hypertension type: primary hypertension Qualified Code(s): I10 - Essential (primary) hypertension Plan His renal functions are currently stable. His proteinuria had been stable. His blood pressure is at goal. He is staying away from nonsteroidal anti- inflammatories. He will benefit from some weight loss and regular exercises. I will consider initiating him on low-dose DEBBIE inhibitor (and or thiazide diuretics especially given history of renal stones).I did not make any other medication changes today. Answered all questions Orders: Orders Hemoglobin A1c 6 Months I10 - Essential (primary) hypertension, N18.31 - Chronic kidney disease, stage 3a, N20.0 - Calculus of kidney Electrolytes 6 Months I10 - Essential (primary) hypertension, N18.31 - Chronic kidney disease, stage 3a, N20.0 - Calculus of kidney Blood Urea Nitrogen 6 Months I10 - Essential (primary) hypertension, N18.31 - Chronic kidney disease, stage 3a, N20.0 - Calculus of kidney Creatinine 6 Months I10 - Essential (primary) hypertension, N18.31 - Chronic kidney disease, stage 3a, N20.0 - Calculus of kidney Parathyroid Hormone Intact 6 Months I10 - Essential (primary) hypertension, N18.31 - Chronic kidney disease, stage 3a, N20.0 - Calculus of kidney Vitamin D 25-OH Total 6 Months I10 - Essential (primary) hypertension, N18.31 - Chronic kidney disease, stage 3a, N20.0 - Calculus of kidney Calcium 6 Months I10 - Essential (primary) hypertension, N18.31 - Chronic kidn ey disease, stage 3a, N20.0 - Calculus of kidney Coding Level of Care Code Est Pt Level 4 (26081) Diagnoses Stage 3a chronic kidney disease N18.31 Chronic kidney disease stage 3 subtype: stage 3a (GFR 45-59) Renal stone N20.0 Primary hypertension I10 Hypertension type: primary hypertension
== END 2025-06-05 10:08 | disposition home or self-care (01) ==
LOC: HO.HKAS 09:40
PROVIDERS: PCP Physician Assistant Medical; Visit Provider Internal Medicine Nephrology
DX: N18.31 Chronic kidney disease, stage 3a (principal); N20.0 Calculus of kidney; I10 Essential (primary) hypertension
CPT/HCPCS: 99214

== ENCOUNTER → 2025-06-05 09:39 | Outpatient (BNVA) | payer MEDICARE, SELFPAY | PROVIDERS: PCP Physician Assistant Medical; Visit Provider Internal Medicine Nephrology | DX: N18.31 Chronic kidney disease, stage 3a (principal); N20.0 Calculus of kidney; I10 Essential (primary) hypertension | CPT/HCPCS: 99212 ==